=== PATIENT | male | born 1955 | race Caucasian/White ===

== ENCOUNTER 2016-09-23 21:03 | Inpatient (IN) | payer OTHER ==
[~2016-09-23] VITALS: Ht 170.2 cm; Wt 82.8 kg
[2016-09-23 21:05] VITALS: BP 136/81
[2016-09-23] MEDS ORDERED: LOPRESSOR50 PO (22:02)
[2016-09-23] MEDS ORDERED: NORVASC10 MG PO (22:02)
[2016-09-23 22:15] LABS: HEMATOCRIT 39.3 % (42.0-52.0); HEMOGLOBIN 13.6 gm/dL (14.0-18.0); MCH 31.8 pg (26.0-34.0); MCHC 34.5 g/dL (28.0-37.0); MCV 92.2 fL (80.0-100.0); PLATELET COUNT 349 thou/uL (150-400); RBC 4.26 mil/uL (4.50-6.00); RDW 14.3 % (10.5-14.5); WBC 25.2 thou/uL (4.0-11.0)
[2016-09-23 22:24] LABS: CALCIUM 8.1 mg/dL (8.5-10.1); CREATININE 1.6 mg/dL (0.7-1.3); POTASSIUM 3.8 mmol/L (3.5-5.1)
[2016-09-23 22:27] LABS: MANUAL DIFF YES
[2016-09-23 22:53] LABS: ABSOLUTE NEUTROPHILS 21.2 thou/uL (1.4-8.2); TOTAL CELL COUNT 100
[2016-09-23 22:54] LABS: ANISOCYTOSIS 1+; POLYCHROMASIA OCCASIONAL
[2016-09-24] VITALS (7 sets, daily range): BP systolic 136–154; BP diastolic 71–87
[2016-09-24 01:02] LABS: URINE BILIRUBIN NEGATIVE (Negative); URINE BLOOD 3+ (Negative); URINE COLOR YELLOW; URINE GLUCOSE-RANDOM* NEGATIVE (Negative); URINE KETONES NEGATIVE (Negative); URINE LEUKOCYTES-REFLEX NEGATIVE (Negative); URINE PROTEIN (DIPSTICK) 1+ (Negative)
[2016-09-24 01:10] LABS: AMP/METHAMP POSITIVE (Negative); BARBITURATES Negative (Negative); BENZODIAZEPINES Negative (Negative); COCAINE Negative (Negative); METHADONE Negative (Negative); OPIATES Negative (Negative); PCP Negative (Negative); THC Negative (Negative)
[2016-09-24 03:22] LABS: SQUAMOUS 0-3 Few /LPF (0-3); URINE RBC >20 Many /HPF (0-2); URINE WBC-REFLEX 6-15 Few /HPF (0-5)
[2016-09-24 03:23] LABS: CASTS None Seen /LPF (None Seen); CRYSTALS None Seen /LPF (None Seen)
[2016-09-25 03:14] LABS: GLYCOHEMOGLOBIN (HGB A1C) 4.9 % (4.8-5.6)
[2016-09-25 03:36] VITALS: BP 144/96
[2016-09-25 06:07] LABS: ABSOLUTE NEUTROPHILS 9.4 thou/uL (1.4-8.2); BASOPHILS 0.3 % (0.0-2.0); HEMATOCRIT 36.3 % (42.0-52.0); HEMOGLOBIN 12.4 gm/dL (14.0-18.0); LYMPHOCYTES 11.8 % (24.0-44.0); MCH 31.8 pg (26.0-34.0); MCHC 34.3 g/dL (28.0-37.0); MCV 92.8 fL (80.0-100.0); MONOCYTES 10.2 % (1.0-8.0); PLATELET COUNT 304 thou/uL (150-400); POLYS 74.7 % (36.0-66.0); RBC 3.91 mil/uL (4.50-6.00); RDW 14.6 % (10.5-14.5); WBC 12.6 thou/uL (4.0-11.0)
[2016-09-25 06:14] LABS: CALCIUM 7.5 mg/dL (8.5-10.1); CREATININE 1.2 mg/dL (0.7-1.3); MAGNESIUM 1.8 mg/dL (1.8-2.4); POTASSIUM 3.2 mmol/L (3.5-5.1)
[2016-09-25 06:28] LABS: MANUAL DIFF NO
[2016-09-25 07:07] VITALS: BP 116/72
[2016-09-25 12:06] VITALS: BP 143/84
[2016-09-25 15:07] VITALS: BP 141/76
[2016-09-25 18:59] VITALS: BP 135/68
[2016-09-26 03:37] LABS: HEMATOCRIT 37.7 % (42.0-52.0); HEMOGLOBIN 12.9 gm/dL (14.0-18.0); MCH 31.7 pg (26.0-34.0); MCHC 34.1 g/dL (28.0-37.0); MCV 92.9 fL (80.0-100.0); RBC 4.06 mil/uL (4.50-6.00); RDW 14.8 % (10.5-14.5); WBC 9.9 thou/uL (4.0-11.0)
[2016-09-26 03:56] LABS: POTASSIUM 3.5 mmol/L (3.5-5.1)
[2016-09-26 07:14] VITALS: BP 153/76
[2016-09-26 11:44] VITALS: BP 146/93
[2016-09-26 16:00] VITALS: BP 120/93
[2016-09-27 04:52] VITALS: BP 131/94
[2016-09-27 08:00] VITALS: BP 134/100
[2016-09-27 12:00] VITALS: BP 137/75
[2016-09-27 16:00] VITALS: BP 148/84
[2016-09-27 19:16] VITALS: BP 144/78
[2016-09-28 05:10] VITALS: BP 164/81
[2016-09-28 06:05] LABS: HEMATOCRIT 41.1 % (42.0-52.0); HEMOGLOBIN 13.8 gm/dL (14.0-18.0); MCH 31.4 pg (26.0-34.0); MCHC 33.6 g/dL (28.0-37.0); MCV 93.3 fL (80.0-100.0); RBC 4.41 mil/uL (4.50-6.00); RDW 14.7 % (10.5-14.5); WBC 11.4 thou/uL (4.0-11.0)
[2016-09-28 06:17] LABS: CALCIUM 8.7 mg/dL (8.5-10.1); POTASSIUM 3.6 mmol/L (3.5-5.1)
[2016-09-28 07:53] VITALS: BP 174/100
[2016-09-28 08:59] VITALS: BP 160/101
[2016-09-28 12:00] VITALS: BP 138/89
[2016-09-28 15:53] VITALS: BP 160/78
[2016-09-28 19:46] VITALS: BP 145/86
[2016-09-29 04:31] VITALS: BP 132/92
[2016-09-29 08:40] VITALS: BP 165/84
[2016-09-29 12:31] VITALS: BP 141/75
[2016-09-29 16:32] VITALS: BP 151/84
[2016-09-29 19:50] VITALS: BP 155/85
[2016-09-30 03:40] VITALS: BP 150/78
[2016-09-30 06:47] LABS: ALBUMIN 2.8 g/dL (3.4-5.0); CALCIUM 8.3 mg/dL (8.5-10.1); POTASSIUM 3.8 mmol/L (3.5-5.1); TOTAL BILIRUBIN 0.6 mg/dL (<0.1-1.0); TOTAL PROTEIN 8.1 g/dL (6.4-8.2)
[2016-09-30 08:25] VITALS: BP 144/89
[2016-09-30 09:13] LABS: HEMATOCRIT 41.5 % (42.0-52.0); MCH 31.5 pg (26.0-34.0); MCHC 33.8 g/dL (28.0-37.0); MCV 93.1 fL (80.0-100.0); RBC 4.46 mil/uL (4.50-6.00); WBC 11.8 thou/uL (4.0-11.0)
[2016-09-30 12:25] VITALS: BP 142/85
[2016-09-30 14:22] LABS: ALBUMIN 2.9 g/dL (3.4-5.0); DIRECT BILIRUBIN 0.2 mg/dL (<0.1-0.3); TOTAL BILIRUBIN 0.6 mg/dL (<0.1-1.0); TOTAL PROTEIN 7.9 g/dL (6.4-8.2)
[2016-09-30 16:44] VITALS: BP 142/85
== END 2016-09-30 17:00 | disposition home or self-care (01) | DRG 872 ==
LOC: ER 21:03 → EROBS 09-24 00:06 → 4S 09-24 00:06
PROVIDERS: Emergency Medicine; Family Medicine; Internal Medicine Infectious Disease; Nurse Practitioner; Nurse Practitioner Family
DX: A41.9 Sepsis, unspecified organism (principal); L03.213 Periorbital cellulitis; E87.1 Hypo-osmolality and hyponatremia; N17.9 Acute kidney failure, unspecified; N39.0 Urinary tract infection, site not specified; D72.829 Elevated white blood cell count, unspecified; E87.6 Hypokalemia; I10 Essential (primary) hypertension; R73.09 Other abnormal glucose; K21.9 Gastro-esophageal reflux disease without esophagitis; K27.9 Peptic ulcer, site unspecified, unspecified as acute or chronic, without hemorrhage or perforation; G47.00 Insomnia, unspecified; F39 Unspecified mood [affective] disorder; F15.10 Other stimulant abuse, uncomplicated; K43.9 Ventral hernia without obstruction or gangrene; D64.9 Anemia, unspecified; G89.29 Other chronic pain; M25.562 Pain in left knee; Z88.6 Allergy status to analgesic agent; Z88.0 Allergy status to penicillin; Z88.8 Allergy status to other drugs, medicaments and biological substances; Z79.899 Other long term (current) drug therapy
CPT/HCPCS: 10100